=== PATIENT | female | born 1930 | race Caucasian/White ===

== ENCOUNTER 2016-08-07 11:01 | Emergency (ER) | payer MEDICARE, BC ==
[~2016-08-07] VITALS: Ht 152.4 cm; Wt 68.0 kg
[2016-08-07] MEDS ORDERED: ZOFRAN4 MG PO (14:37)
[2016-08-07] MEDS ORDERED: PREDNISONE2.5 MG PO (14:40)
[2016-08-07] MEDS ORDERED: ATORVASTATIN CA20 MG PO (14:42)
[2016-08-07] MEDS ORDERED: MOBIC7.5 MG PO (14:42)
[2016-08-07] MEDS ORDERED: SYNTHROID50 MCG PO (14:43)
[2016-08-07] MEDS ORDERED: PROTONIX40 MG PO (14:43)
[2016-08-07] MEDS ORDERED: ULTRAM50 MG PO (14:44)
== END 2016-08-07 15:40 | disposition short-term general hospital (02) ==
LOC: ER 11:01
DX: R11.2 Nausea with vomiting, unspecified (principal); K21.9 Gastro-esophageal reflux disease without esophagitis; K44.9 Diaphragmatic hernia without obstruction or gangrene; E03.9 Hypothyroidism, unspecified; M19.90 Unspecified osteoarthritis, unspecified site; Z79.899 Other long term (current) drug therapy
CPT/HCPCS: J2405

== ENCOUNTER 2016-11-02 11:45 | Emergency (ER) | payer MEDICARE, BC ==
[~2016-11-02] VITALS: Ht 149.9 cm; Wt 66.7 kg
[~2016-11-02 11:45] MED LIST: ATORVASTATIN CA20 MG PO; MOBIC7.5 MG PO; PREDNISONE2.5 MG PO; PROTONIX40 MG PO; SYNTHROID50 MCG PO; ULTRAM50 MG PO; ZOFRAN4 MG PO
== END 2016-11-02 14:30 | disposition short-term general hospital (02) ==
LOC: ER 11:45
DX: I10 Essential (primary) hypertension (principal); F41.9 Anxiety disorder, unspecified; R22.1 Localized swelling, mass and lump, neck